=== PATIENT | female | born 1985 | race Caucasian/White ===

== ENCOUNTER 2016-10-07 13:50 | Outpatient (CLI) | payer OTHER ==
[~2016-10-07 13:50] MED LIST: ASPIRIN CHILDRE81 MG PO; CORRECTOL100 MG PO; IBUPROFEN400 MG PO; IRON325 MG PO; LOVENOX40 MG/0.4 SC; OXYCODONE/ACETA1 TA1 PO; PRENATAL1 TAB
--- NOTE | 2016-10-07 15:37 | DIAGNOSTIC IMAGING REPORT ---
PROCEDURE: US COMPLETE PELVIC W/TRANSVAG INDICATION: ABD PAIN TECHNIQUE: Transabdominal and endovaginal montes scale and color Doppler sonographic images of the female pelvis were obtained. COMPARISON: Comparison is made to pelvic ultrasound 01/29/2015. FINDINGS: TRANSABDOMINAL SCANS: The uterus is of normal size (4.9 x 4.0 x 3.3 cm). TRANSVAGINAL SCANS: Endometrial thickness is normal (5 mm) with a small 3 mm submucosal cyst (incidental finding). Minimal fluid in the endocervical canal. Right ovary is normal (2.8 cm) with multiple follicular cysts. Left ovary is normal (3.3 cm) with small follicular cyst. No evidence of free fluid. IMPRESSION: 1. Negative pelvic ultrasound
== END 2016-10-07 23:00 | disposition home or self-care (01) ==
LOC: US SRH 13:50
DX: R10.84 Generalized abdominal pain (principal)